=== PATIENT | female | born 1965 | race Caucasian/White ===

== ENCOUNTER 2016-05-14 07:58 | Day surgery (SDC) | payer BC ==
[2016-05-14] MEDS ORDERED: LACTATED RINGERS 1,000 ML IV ONE (08:25)
[2016-05-14] MEDS ORDERED: fentaNYL 250 MCG/5 ML VIAL IVP ONE (09:54)
[2016-05-14] MEDS ORDERED: MIDAZOLAM 2 MG/2 ML VIAL IVP ONE (09:54)
== END 2016-05-14 07:59 | disposition home or self-care (01) ==
PROC: 0DBL8ZX Excision of Transverse Colon, Via Natural or Artificial Opening Endoscopic, Diagnostic (ICD-10-PCS; principal; 2016-05-14 09:30)
DX: D12.3 Benign neoplasm of transverse colon (principal); K64.8 Other hemorrhoids; Z86.010 Personal history of colon polyps; Z88.5 Allergy status to narcotic agent; E03.9 Hypothyroidism, unspecified
CPT/HCPCS: 45385; J3010; J7120